=== PATIENT | female | born 1945 ===

== ENCOUNTER 2024-02-02 16:46 | Outpatient (CLI) | payer OTHER, MEDICARE, SELFPAY ==
[2024-02-02 17:10] LABS: INR 3.62 (0.8-1.2)
== END 2024-02-02 16:47 | disposition home or self-care (01) ==
LOC: LAB 16:48
PROVIDERS: Visit Provider Internal Medicine
DX: I25.118 Atherosclerotic heart disease of native coronary artery with other forms of angina pectoris (principal)
CPT/HCPCS: 85610